=== PATIENT | female | born 1960 | race Caucasian/White ===

== ENCOUNTER → 2017-12-15 | Outpatient (CLI) | payer OTHER ==
[~2017-12-15] MED LIST: CLARITIN10 MG PO; FLEXERIL PO; NORCO 5-325 TA1 EACH PO; PRILOSEC 20 MG20 MG PO
== END ==
LOC: M.RAD 16:36
DX: S22.42XA Multiple fractures of ribs, left side, initial encounter for closed fracture (principal); J84.10 Pulmonary fibrosis, unspecified; V89.2XXA Person injured in unspecified motor-vehicle accident, traffic, initial encounter; Y93.89 Activity, other specified; Y92.89 Other specified places as the place of occurrence of the external cause; Y99.8 Other external cause status